=== PATIENT | female | born 1965 | race Caucasian/White ===

== ENCOUNTER 2020-03-28 13:39 | Emergency (ER) | payer MEDICARE ==
[2020-03-28] MEDS ORDERED: XYLOCAINE 1% HCL 20 ML MDV IJ ONE (13:40)
[2020-03-28] MEDS ORDERED: Zithromax 250 MG TABLET PO ONE (14:55)
[2020-03-28] MEDS ORDERED: ROCEPHIN 250 MG INJ IM ONE (14:55)
[2020-03-28 15:27] LABS: BASOPHIL % 0.3 % (0.0-0.4); Basophil (Absolute #) 0.02 (0-0.4); Eosinophil % 4.3 % (0.00-5.0); Eosinophil (Absolute #) 0.32 (0-0.5); Hematocrit 42.7 % (35-47); Hemoglobin 13.7 gm/dl (12.0-16.0); Lymphocyte (Absolute #) 1.74 (1.0-4.6); Lymphocytes % 23.3 % (24.0-44.0); Mean Corpuscular Hemoglobin 31.1 pg (26-32); Mean Corpuscular Hgb Concent. 32.1 g/dl (32-36); Mean Platelet Volume 11.3 fl (7.5-11.0); Neutrophil % 60.1 % (36.0-66.0); Platelet Count 237 K/mm3 (150-450); White Blood Count 7.5 K/mm3 (4.0-10.5)
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
[2020-03-28 15:37] VITALS: O2SAT 98
[2020-03-28 15:39] VITALS: BP 149/81; PULSE 84
[2020-03-28 16:01] LABS: Appearance CLOUDY (CLEAR); Bilirubin NEGATIVE (NEGATIVE); Blood NEGATIVE Ery/ul (0-5); Epithelial Cells FEW /HPF (FEW); Glucose NEGATIVE (NEGATIVE); Ketones NEGATIVE (NEGATIVE); Leukocyte Esterase TRACE (NEGATIVE); Mucus MODERATE /HPF (NEGATIVE); Nitrite NEGATIVE (NEGATIVE); Protein,Urine Dip NEGATIVE (Negative); Specific Gravity 1.026 (1.005-1.025); Urobilinogen 2 mg/dL (0-1)
[2020-03-28 16:04] LABS: ALBUMIN 3.6 g/dL (3.5-5.0); ALKALINE PHOSPHATASE 79 U/L (38-126); ANION GAP 9.7 MEQ/L (5-15); BLOOD UREA NITROGEN 12 mg/dL (7-17); CHLORIDE 110 mmol/L (98-107); Calcium 9.3 mg/dL (8.4-10.2); Carbon Dioxide 27 mmol/L (22-30); Creatinine 1 0.74 mg/dL (0.52-1.04); Glucose 107 mg/dL (74-106); Potassium 3.3 mmol/L (3.5-5.1); SGOT/AST 29 U/L (14-36); SGPT/ALT 24 U/L (0-35); SODIUM 143 mmol/L (137-145); Total Protein 7.3 g/dL (6.3-8.2)
[2020-03-28] MEDS ORDERED: Rocephin 500 MG INJ ONE (16:08)
[2020-03-28] MEDS ORDERED: Zithromax 250 MG TABLET ONE (16:08)
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
[2020-03-30 12:57] LABS: RPR Screen Non Reactive (Non Reactive)
== END 2020-03-28 17:10 | disposition home or self-care (01) ==
LOC: ED 13:39
DX: T76.21XA Adult sexual abuse, suspected, initial encounter (principal); N39.0 Urinary tract infection, site not specified
CPT/HCPCS: 0064U; 36415; 73590; 80053; 81001; 85025; 86592; 86593; 86701; 86702; 87086; 87389; 96372; 99284; J0696; A9270-GY

== ENCOUNTER 2020-04-20 12:40 | Day surgery (SDC) | payer MEDICARE ==
[2020-04-20] MEDS ORDERED: Depo-Medrol 40 MG/ML IM ONE (12:41)
[2020-04-20] MEDS ORDERED: Xylocaine-Mpf 2% 5 Ml Vial IJ ONE (12:41)
[2020-04-20] MEDS ORDERED: Ketamine HCl 50 MG/ML ONE (13:35)
[2020-04-20] MEDS ORDERED: DIPRIVAN 200 MG/20 ML IV ONE (13:35)
--- NOTE | 2020-04-20 14:40 | XRAY ---
Indication: Bilateral L3-S1 MBB. Intraoperative fluoroscopy was provided for 19 seconds. Single digital spot image submitted for interpretation demonstrates posterior needle tips projecting over the expected course of the left and right L3-S1 nerve roots. Correlate with intraoperative findings/report.
--- NOTE | 2020-04-20 14:44 | XRAY ---
19 seconds fluoroscopy time in surgery for bilateral L3- S1 MBB.
[2020-04-20] MEDS ORDERED: Lactated Ringers 1,000 ML IV ONE (14:48)
== END 2020-04-20 14:05 | disposition home or self-care (01) ==
LOC: SDC-PAIN 12:40
PROVIDERS: ATTEND Psychiatry & Neurology Pain Medicine
DX: M47.816 Spondylosis without myelopathy or radiculopathy, lumbar region (principal); I10 Essential (primary) hypertension; J44.9 Chronic obstructive pulmonary disease, unspecified; I25.10 Atherosclerotic heart disease of native coronary artery without angina pectoris; F41.8 Other specified anxiety disorders; Z79.899 Other long term (current) drug therapy
CPT/HCPCS: 64493; 64494; 64495; 72020; 77002; J1030; J2704